=== PATIENT | female | born 1945 | race Caucasian/White ===

== ENCOUNTER 2021-07-27 13:04 | Observation (INO) ==
[2021-07-27 14:42] LABS: Magnesium 2.1 mg/dL (1.6-2.6); Phosphorous 3.6 mg/dL (2.7-4.5)
[2021-07-27 14:43] LABS: Troponin I < 0.03 ng/mL (< 0.04)
[2021-07-27 15:52] LABS: Basophils # 0.1 K/mcL (0.0-0.2); Basophils % 1.2 %; Eosinophils # 0.1 K/mcL (0.0-0.6); Eosinophils % 1.8 %; Hematocrit 42.1 % (35.3-44.9); Hemoglobin 13.5 g/dL (11.5-15.4); Immature Granulocytes % 0.2 % (0-4); Mean Corpuscular HGB Conc 32.1 g/dL (31.6-35.5); Mean Corpuscular Hemoglobin 29.4 pg (28.0-33.3); Mean Corpuscular Volume 91.7 fL (83.0-100.0); Mean Platelet Volume 9.3 fL (9.4-12.4); Monocytes # 0.4 K/mcL (0.0-1.3); Monocytes % 9.7 %; Neutrophils # 2.7 K/mcL (1.6-8.9); Platelet Count 232 K/mcL (140-400); Red Blood Count 4.59 M/mcL (3.82-4.97); Red Cell Distribution Width 12.7 % (11.5-14.5); Segmented Neutrophils % 63.1 %; White Blood Count 4.3 K/mcL (4.3-11.1)
[2021-07-27 16:00] LABS: Alanine Aminotransferase 8 Units/L (7-52); Albumin/Globulin Ratio 1.4 (1.1-2.2); Alkaline Phosphatase 56 Units/L (34-104); Aspartate Amino Transferase 14 Units/L (13-39); BUN/Creatinine Ratio 17 (6-26); Bilirubin,Total 0.4 mg/dL (0.3-1.0); Blood Urea Nitrogen 17 mg/dL (8-23); Calcium 9.3 mg/dL (8.6-10.3); Carbon Dioxide 26 mEq/L (23-29); Chloride 102 mEq/L (98-107); Globulin 2.8 g/dL (2.4-3.5); Glucose 93 mg/dL (70-105); Osmolality,Calculated 287 (280-300); Potassium 3.9 mEq/L (3.5-5.1); Sodium 138 mEq/L (136-145); Total Protein 6.8 g/dL (6.4-8.9); eGFR For African Americans > 60 (> 60); eGFR For Non-African Americans 54 (> 60)
[2021-07-27] MEDS ORDERED: Perflutren Lipid Microsphere 1.3 ML in 0.9 % Sodium Chloride 8.7 ML IVP PRN (16:13)
[2021-07-27] MEDS ORDERED: Naloxone 0.4 MG/ML INJ IVP PRN (16:51)
[2021-07-27] MEDS ORDERED: Acetaminophen 325 MG TABLET PO PRN (16:51)
[2021-07-27] MEDS ORDERED: Aspirin Enteric Coated 325 MG Tablet PO ONE (17:32)
[2021-07-28 01:34] LABS: Prothrombin Time 11.2 Seconds (9.4-12.1)
[2021-07-28 01:51] LABS: Alanine Aminotransferase 7 Units/L (7-52); Albumin 3.8 g/dL (3.5-5.7); Albumin/Globulin Ratio 1.5 (1.1-2.2); Alkaline Phosphatase 51 Units/L (34-104); Aspartate Amino Transferase 13 Units/L (13-39); BUN/Creatinine Ratio 20 (6-26); Bilirubin,Total 0.3 mg/dL (0.3-1.0); Blood Urea Nitrogen 17 mg/dL (8-23); Carbon Dioxide 26 mEq/L (23-29); Chloride 102 mEq/L (98-107); Chol/HDL Ratio 4.5 (0-4.9); Cholesterol 189 mg/dL (< 200); Globulin 2.6 g/dL (2.4-3.5); Glucose 91 mg/dL (70-105); HDL Cholesterol 42 mg/dL (40-59); LDL Cholesterol,Calculated 122 mg/dL (< 100); Osmolality,Calculated 283 (280-300); Potassium 3.5 mEq/L (3.5-5.1); Sodium 136 mEq/L (136-145); Total Protein 6.4 g/dL (6.4-8.9); Triglycerides 123 mg/dL (< 150); eGFR For African Americans > 60 (> 60); eGFR For Non-African Americans > 60 (> 60)
[2021-07-28 03:04] LABS: Estimated Average Glucose 114 mg/dl; Hemoglobin A1C 5.6 %
[2021-07-28] MEDS ORDERED: Isovue-370 500 ML BOTTLE IVP ONE (07:43)
[2021-07-28] MEDS: clonazePAM 0.5 MG TABLET PO SCH ×2 (08:59→21:01)
[2021-07-28] MEDS: lisinopriL 20 MG TABLET PO SCH (09:00)
[2021-07-28] MEDS ORDERED: Aspirin Enteric Coated 325 MG Tablet PO ONE (16:08)
[2021-07-28] MEDS: *HR* Heparin 5,000 UNIT/ML VIAL SQ SCH (17:11)
[2021-07-29] MEDS: *HR* Heparin 5,000 UNIT/ML VIAL SQ SCH (05:40)
[2021-07-29] MEDS: lisinopriL 20 MG TABLET PO SCH (06:53)
[2021-07-29] MEDS: clonazePAM 0.5 MG TABLET PO SCH (06:57)
[2021-07-29] MEDS ORDERED: lisinopriL 20 MG TABLET PO SCH (07:45)
[2021-07-29] MEDS ORDERED: lisinopriL 10 MG TABLET PO ONE (07:59)
[2021-07-29] MEDS ORDERED: hydroCHLOROthiazide 25 MG TABLET PO SCH (09:00)
[2021-07-29 10:09] VITALS: PULSE 73; TEMP 98.1; O2SAT 93
[2021-07-29] MEDS ORDERED: amLODIPine 5 MG TABLET PO SCH (11:15)
[2021-07-29 13:01] VITALS: BP 164/94
[2021-07-30] MEDS ORDERED: lisinopriL 20 MG TABLET PO SCH (09:00)
== END 2021-07-29 13:42 | disposition home health service (06) ==
LOC: EMEROOARM 13:04 → 3BNU 13:04 → SUATTDRO 15:46 → 3BNU 16:23
PROVIDERS: ADMIT Family Medicine; ATTEND Internal Medicine